=== PATIENT | male | born 1940 | race Caucasian/White ===

== ENCOUNTER 2016-11-05 10:28 | Emergency (ER) | payer MEDICARE, OTHER ==
[~2016-11-05 10:28] MED LIST: ASA5GR PO; ASAEC PO; CATAFLAM50 MG PO; CIP5 PO; D 5000 PO; FISH-EPA1000 MG PO; FUROSEMIDE PO; GLUCCHONDR PO; GLUCOV5 PO; L20 PO; LIPITOR20 PO; LOP25 PO; LOP50 PO; LORTAB 5 PO; LOTE10 PO; LOTREL1 CA1 PO; METAGLIP1 TA2 PO; METHOC500B PO; NORCO1 TAB PO; NORV5 PO; OMEPRAZOLE PO; PRILO PO; PRILOSEC40 MG PO; VICTOZA; VICTOZA PO; VITAMIN D31000 UNIT PO; X5 PO; ZOCOR40 PO
[2016-11-05 12:37] LABS: BASOPHILS 0.5 %; BASOPHILS ABSOLUTE 0.04 10/3/uL (0.0-0.16); EOSINOPHILS 3.5 %; EOSINOPHILS ABSOLUTE 0.27 10/3/uL (0.0-0.53); IMMATURE GRANULOCYTES 0.1 %; IMMATURE GRANULOCYTES ABSOLUTE 0.01 10/3/uL (0.0-0.11); LYMPHOCYTES 23.4 %; LYMPHOCYTES ABSOLUTE 1.78 10/3/uL (0.67-4.30); MEAN CORPUS HGB CONC 32.8 g/dL (32.0-36.0); MEAN CORPUSCULAR HEMOGLOB 28.6 pg (26.0-34.0); MEAN PLATELET VOLUME 10.9 fL (9.2-13.0); MONOCYTES 9.3 %; MONOCYTES ABSOLUTE 0.71 10/3/uL (0.21-1.20); NEUTROPHILS 63.2 %; NEUTROPHILS ABSOLUTE 4.81 10/3/uL (2.02-8.40); PLATELET COUNT 193 10/3/uL (150-400); RBC DISTRIBUTION WIDTH 14.5 % (12.0-16.0); WHITE BLOOD CELLS 7.6 10/3/uL (4.5-10.5)
[2016-11-05 12:38] LABS: ER CBC TAT 0 Hrs 08 Mins; HEMATOCRIT 37.5 % (40.0-51.0); HEMOGLOBIN 12.3 g/dL (13.6-17.8); MANUAL DIFF NO %; MEAN CORPUSCULAR VOLUME 87.2 fL (80-100)
[2016-11-05 12:44] LABS: PARTIAL THROMBO TIME 27.9 SEC (22.5-37.2); PROTIME (NOT ORD) 13.2 SEC (12.0-14.5)
[2016-11-05 12:55] LABS: ACETAMINOPHEN LEVEL (TYLENOL) < 2.0 MCG/ML (10.0-20.0); ALCOHOL < 10 MG/DL (0); BUN (BLOOD UREA NITROGEN) 29 MG/DL (6-23); CALCIUM, SERUM 9.4 MG/DL (8.5-10.4); CHEST PAIN PROFILE TAT 0 Hrs 26 Mins; CHLORIDE, SERUM 105 MMOL/L (96-112); CO2 (CARBON DIOXIDE) 29 MMOL/L (24-34); CREATININE 1.27 MG/DL (0.70-1.30); GFR AFRICAN AMERICAN 64 ML/MIN (>=60); GFR NON AFRICAN AMERICAN 55 ML/MIN (>=60); GLUCOSE, SERUM 140 MG/DL (60-99); POTASSIUM, SERUM 3.6 MMOL/L (3.5-5.3); SALICYLATE 1.8 MG/DL (-); SODIUM, SERUM 143 MMOL/L (135-148); TROPONIN I <0.02 NG/ML (<0.05)
[2016-11-05 13:45] LABS: WBC (NOT ORDERED) (RFLEX) 0 (0-5)
[2016-11-05 13:53] LABS: ASCORBIC ACID (UR NOT ORDER) NEG (NEG); BILIRUBIN, URINE NEGATIVE (NEG); ER URINALYSIS TAT 0 Hrs 09 Mins; KETONE, URINE NEGATIVE (NEG); LEUKOCYTE ESTERASE(NOT OR NEG (NEG); NITRITE (URINE) NEG (NEG)
[2016-11-05 14:10] LABS: AMPHETAMINES (NOT ORD) NEG (NEG); BARBITURATES (NOT ORDERED NEG (NEG); BENZODIAZEPINES (NOT ORD) NEG (NEG); CANNABINOIDS (THC) NEG (NEG); COCAINE (NOT ORDERED) NEG (NEG); OPIATES NEG (NEG); PHENCYCLIDINE(PCP) NEG (NEG); TRICYCLICS NEG (NEG)
[2016-11-05 14:28] LABS: INFLUENZA A SCREEN NEGATIVE (NEGATIVE); INFLUENZA B SCREEN NEGATIVE (NEGATIVE)
== END 2016-11-05 16:10 | disposition home or self-care (01) ==
LOC: ER 10:28
PROVIDERS: Nurse Practitioner
DX: R44.1 Visual hallucinations (principal); D64.9 Anemia, unspecified; R79.89 Other specified abnormal findings of blood chemistry; I10 Essential (primary) hypertension; K21.9 Gastro-esophageal reflux disease without esophagitis; E11.9 Type 2 diabetes mellitus without complications; Z87.891 Personal history of nicotine dependence; Z98.61 Coronary angioplasty status; Z88.8 Allergy status to other drugs, medicaments and biological substances; Z79.82 Long term (current) use of aspirin; Z79.899 Other long term (current) drug therapy
CPT/HCPCS: 71010; 80048; 80305; 80307; 81001; 83735; 84484; 85025; 85610; 85730; 87804; 93005; 96372; 99285

== ENCOUNTER 2017-01-08 20:24 | Inpatient (IN) | payer MEDICARE, OTHER ==
--- NOTE | ~2017-01-08 | DS ---
Discharge Summary [facility] [address] [place]. [address] NAME: ALEX KEMP : 44 STATUS : DIS IN PAT#: [id number] AGE: 76 ADM/REG DATE : 01/09/17 MR#: [id number] REPORT SERV DATE: 01/12/17 DICTATED BY: DATE: REPORT STATUS : Draft TRANSCRIBED BY: MODL DATE: 01/11/17 ADMISSION DATE: 01/08/2017 DISCHARGE DATE: 01/11/2017 The patient was admitted to the [facility]. DISCHARGE DIAGNOSES: 1. Weakness with multiple recent falls-due to morbid obesity, deconditioning, and lumbar spine stenosis. 2. Multilevel lumbar spine stenosis. No evidence of cord compression. 3. Acute kidney injury on chronic kidney disease, stage II-suspect due to recent nonsteroidal anti-inflammatory use. 4. Proteinuria-likely diabetic nephropathy. ARB resumed at discharge. 5. Insulin-dependent diabetes mellitus type 2-controlled with hemoglobin A1c 6.9. 6. Hypertension-controlled. 7. History of coronary artery disease. 8. Morbid obesity. 9. History of benign paroxysmal positional vertigo. IMAGIN. CT lumbar spine, 01/09, for lower extremity weakness and falls, shows high-grade canal stenosis at L4-5, L3-4, L1-2 with neuroforaminal stenosis present on the left at L5-S1 and on the right at L4-5 and L5-S1. Exam stable from 2010. No CT evidence of compression injury. 2. Plain films of the left ankle show medial probable lateral edema, represent underlying ligamentous strain or sprain. Small accessary ossicle deep to the tibia with no evidence of bony fracture. Plain films of the knee shows small joint effusion. No acute fracture or dislocation. 3. Portable chest x-ray shows normal heart size. Lungs clear. PERTINENT LABS: Urinalysis was negative. Lactic acid level negative. Hepatic function panel pertinent for creatinine of 1.66 at admission, 1.2 at discharge. Albumin 3.0. Liver enzymes normal. Troponin negative. White blood cell count initially 11.4, 7.2 at discharge. Hemoglobin slightly low 12.4, platelets 183. INR 1.0. BNP 12. Hemoglobin A1c 6.9. Blood cultures x2 negative. BRIEF HISTORY: For full details please see the previously dictated history of present illness by Dr. Colt Bautista. The patient is a 76-year-old, white male, followed outpatient by Dr. Del Bowen. The patient is morbidly obese with chronic medical conditions as outlined above. He sustained three falls on the day of admission, and required the fire department to be summoned to help pick him up for the first 2 falls. On the third fall, he was amenable to evaluation in the emergency department. In the ER, was noted to have acute kidney injury and was admitted to the Hospitalist Service for further evaluation. Discharge Summary [place] [address] [facility] [place]. [address] NAME: ALEX KEMP : 42 STATUS : DIS IN PAT#: [id number] AGE: 76 ADM/REG DATE : 01/09/17 MR#: [id number] REPORT SERV DATE: 01/12/17 DICTATED BY: DATE: REPORT STATUS : Draft TRANSCRIBED BY: SHASHANK DATE: 01/11/17 HOSPITAL COURSE: The patient was admitted to [facility], and his home angiotensin receptor jordi and diuretic were initially held. He was gently hydrated with downtrend in his creatinine to normal value prior to discharge. Urinalysis was negative and no other cause for acute kidney injury could initially be determined. On further questioning, patient reported recently increased back pain for which he has been taking 600-800 mg of ibuprofen several times a day for the past few weeks. He was expressly instructed to discontinue any nonsteroidal anti-inflammatory use as the likely cause of his acute kidney injury is nonsteroidal anti-inflammatories. To further evaluate the back pain and leg weakness, he underwent a CT of the lumbar spine this admission showing multifocal spinal stenosis throughout the lumbar spine. This is known from prior, and patient did not have any neurologic deficits on examination. Imaging is stable since 2010 and he declined to see an orthopedic surgeon for evaluation while he was here stating he prefers to manage it conservatively. The patient's other chronic medical conditions including hypertension, diabetes, history of coronary artery disease, and morbid obesity were controlled with home medications. The patient was seen by Physical Therapy and recommended for rehab placement. He was referred to [facility] and he was both medically and financially approved for transfer to [facility] on 01/11. A bed was available, and he is being transported this evening for ongoing physical rehabilitation. DISCHARGE DISPOSITION: The patient is being discharged to [facility]. Activity will be as directed by the receiving facility. He should adhere to an 1800 calorie, ADA, cardiac diet at discharge, and needs to plan to follow up with PCP, Del Bowen, within 7-14 days from discharge from [facility]. DISCHARGE MEDICATIONS: 1. Xanax 0.5 mg p.o. twice a day. 2. Norvasc 5 mg p.o. twice a day. 3. Ecotrin 325 mg p.o. daily. 4. NovoLog sliding scale subcu before every meal and at bedtime. 5. Multivitamin. 6. Metoprolol 25 mg p.o. twice a day. 7. Topical nystatin to groin skin folds. 8. Protonix 40 mg p.o. q.a.c. breakfast. 9. Zocor 40 mg p.o. at bedtime. 10.Trazodone 50-100 mg p.o. at bedtime. 11.Tylenol 650 mg p.o. every 4 hours as needed for fever or pain. 12.Guaifenesin 600 mg p.o. daily as needed for congestion. 13.Hydrocodone/acetaminophen 5/325 mg 1-2 tabs every six hours as needed. 14.Loratadine 10 mg p.o. daily as needed. 15.MiraLax one packet p.o. daily as needed. 16.DuoNeb as needed. 17.Levemir 10 units subcu at bedtime. Thirty minutes was spent in completion of the discharge. Discharge Summary [address] [address] NAME: ALEX KEMP : 42 STATUS : DIS IN PAT#: [id number] AGE: 76 ADM/REG DATE : 01/09/17 MR#: [id number] REPORT SERV DATE: 01/12/17 DICTATED BY: DATE: REPORT STATUS : Draft TRANSCRIBED BY: SHASHANK DATE: 01/11/17 ADILSON/SHASHANK Sacha John M.D. / [id number] CC: Raleigh Albarransfield, D.O. [facility]
--- NOTE | ~2017-01-08 | HP ---
History And Physical [facility] [address] [place]. [address] NAME: ALEX ASCENCIO : 44 STATUS : ADM Amairani PAT#: [id number] AGE: 76 ADM/REG DATE : 01/08/17 MR#: [id number] REPORT SERV DATE: 01/09/17 DICTATED BY: COLT FISCHER DATE: 01/09/17 REPORT STATUS : Draft TRANSCRIBED BY: MODL DATE: 01/09/17 DATE OF ADMISSION: 01/08/2017 CHIEF COMPLAINT: Recurrent falls today at home. HISTORY OF PRESENT ILLNESS: This is a 76-year-old male who has a history of recurrent falls, essential hypertension, morbid obesity, generalized weakness, coronary artery disease with stents, and diabetes, who presents to the emergency room at [facility] with the above-mentioned complaint. History is obtained from the patient and reviewing data available on the [employer] system. According to Mr. Ascencio, he got up today in the morning and on his way to the bathroom, felt his legs buckled and he went down to the floor. He did not hit his head against anything and did not lose consciousness. However, he was unable to get up and called the fire department, who came and helped him up. Later in the morning, he had another episode where he fell down again where his legs buckled and gave way. He again called the fire department, who came and helped him up and at this time, they tried to convince him to go to the emergency room to be evaluated. Mr. Ascencio refused at that time. He fell one more time at home and the fire department came home and helped him up, and this time when they asked him, he said he would like to go to the emergency room, and they brought him here. According to reports, he has not had any focal weaknesses or neurological signs. He was otherwise okay. In the emergency room, initial workup revealed acute kidney injury along with contusions in his left ankle and knee. Hospitalist Service is asked to admit him for further evaluation and treatment. At the time of my evaluation, he denied any chest pain, palpitations, or orthopnea. He had he had no cough, hemoptysis, night sweats, or weight loss. He did have falls as mentioned above, but without any loss of consciousness. No history of recent fevers, chills, nausea, vomiting, diarrhea. He has not had any recent hematemesis, hematochezia, or hematuria. No other history of recent travel or exposures. PAST MEDICAL HISTORY: Significant for history of essential hypertension, coronary artery disease with stents, diabetes mellitus type 2, morbid obesity, and a history of sepsis with Enterococcus faecalis in his urine. SOCIAL HISTORY: He does not smoke, drink, or use recreational drugs. FAMILY HISTORY: Noncontributory. MEDICATIONS: At home were reviewed by me in the chart today and reordered by me. REVIEW OF SYSTEMS: History And Physical [address] [address] NAME: ALEX ASCENCIO : 44 STATUS : ADM Amairani PAT#: [id number] AGE: 76 ADM/REG DATE : 01/08/17 MR#: [id number] REPORT SERV DATE: 01/09/17 DICTATED BY: COLT FISCHER DATE: 01/09/17 REPORT STATUS : Draft TRANSCRIBED BY: SHASHANK DATE: 01/09/17 As in history of present illness. All other systems were reviewed in detail and are quite unremarkable. PHYSICAL EXAMINATION: GENERAL: This is a pleasant 76-year-old with morbid obesity, quite alert, awake, oriented to time, place, and person. EENT: His pupils are equal, reacting to light and accommodating. External ocular muscles are intact. Membranes are moist and pink. Sclerae are nonicteric. NECK: Supple with no jugular venous distention or lymphadenopathy. There was no thyromegaly. HEAD: Atraumatic, normocephalic. LUNGS: Auscultation of his lungs revealed diminished air entry bilaterally, but without any rales or expiratory wheezes. Trachea appeared to be in midline. HEART: Auscultation of his heart revealed normal rate and rhythm with no murmurs, rubs, or gallops appreciated. ABDOMEN: Protuberant, soft, nontender. Bowel sounds are present. EXTREMITIES: Showed no cyanosis, clubbing, or edema. NEUROLOGIC: Grossly intact with no focal sensory or motor deficits. Higher functions appeared intact. Gait was not examined at this time. VITAL SIGNS: Today showed a temperature of 98.2, pulse 72, respirations 19 a minute, blood pressure was 176/54, oxygen saturations were 94% breathing 2 L of oxygen via nasal cannula. LABORATORY DATA: Reviewed on the [employer] system showed a sodium of 140, potassium 4.2, chloride 103, CO2 of 29, BUN was 28 with a creatinine of 1.66 which is slightly up from his baseline of 1.1 to 1.2. His blood glucose was 102. His alkaline phosphatase today was 69. ALT and AST were within normal limits. Troponin was 0.02. BNP was 12. Lactate was 1.4 today. CBC showed a white blood cell count of 11,400, hemoglobin was 12.4, hematocrit 37.2, and platelet count was 183,000. Urinalysis was unremarkable today. Films of the chest x- ray were reviewed by me on the PACS today and interpreted by me. There is normal bony architecture with no lobar consolidations or pleural effusions seen. A 12-lead EKG done in emergency room was reviewed and interpreted by me. There is sinus rhythm at a rate of 67 with a first-degree heart block. IMPRESSION: 1. Generalized weakness. 2. Recurrent falls. 3. Acute kidney injury. 4. Morbid obesity. 5. Essential hypertension. 6. Coronary artery disease with stent placement. 7. Diabetes mellitus, type 2. 8. Left ankle strain and left knee contusion. PLAN: We will admit Mr. Ascencio to the Hospitalist Service with defensive monitoring for a 24- hour observation period. We will start him on IV fluids for volume resuscitation and blood sugar control with NovoLog given subcutaneously per sliding scale. We will cautiously treat pain if at all necessary with oral medications in very low doses. We will get Social Work History And Physical [address] [place]. [address] NAME: ALEX ASCENCIO : 44 STATUS : ADM Amairani PAT#: [id number] AGE: 76 ADM/REG DATE : 01/08/17 MR#: [id number] REPORT SERV DATE: 01/09/17 DICTATED BY: COLT FISCHER DATE: 01/09/17 REPORT STATUS : Draft TRANSCRIBED BY: MODBassam DATE: 01/09/17 to evaluate him in the morning for rehabilitation and/or strength training. We will continue all other medications and treatments at this time as well. He will be on unfractionated heparin for DVT prophylaxis while he is here. I have discussed the above plans with the patient. His questions were answered, and he is agreeable to the above recommendations. Hospitalist Service will be following him during his stay here. /SHASHANK Colt Fischer M.D. / [id number] CC: Raleigh Ram
[2017-01-08 20:32] LABS: ASCORBIC ACID (UR NOT ORDER) NEG (NEG); BILIRUBIN, URINE NEGATIVE (NEG); ER URINALYSIS TAT 0 Hrs 08 Mins; KETONE, URINE NEGATIVE (NEG); LEUKOCYTE ESTERASE(NOT OR NEG (NEG); NITRITE (URINE) NEG (NEG); WBC (NOT ORDERED) (RFLEX) < 1 (0-5)
[2017-01-08 21:11] LABS: BUN (BLOOD UREA NITROGEN) 28 MG/DL (6-23); CALCIUM, SERUM 10.1 MG/DL (8.5-10.4); CHEST PAIN PROFILE TAT 0 Hrs 23 Mins; CHLORIDE, SERUM 103 MMOL/L (96-112); CO2 (CARBON DIOXIDE) 29 MMOL/L (24-34); CREATININE 1.66 MG/DL (0.70-1.30); GFR AFRICAN AMERICAN 46 ML/MIN (>=60); GFR NON AFRICAN AMERICAN 40 ML/MIN (>=60); GLUCOSE, SERUM 107 MG/DL (60-99); LACTATE 1.4 MMOL/L (0.3-2.4); SGPT(ALT) 18 U/L (5-65); SODIUM, SERUM 140 MMOL/L (135-148); TOTAL BILIRUBIN 0.3 MG/DL (0-1.2); TOTAL PROTEIN 8.1 G/DL (6.0-8.5); TROPONIN I <0.02 NG/ML (<0.05)
[2017-01-08 21:12] LABS: ALKALINE PHOSPHATASE 69 U/L (45-117); DIRECT BILIRUBIN < 0.1 MG/DL (0.0-0.4); INDIRECT BILIRUBIN(NOT ORDER) 0.2 MG/DL (0.1-0.9); POTASSIUM, SERUM 4.2 MMOL/L (3.5-5.3); SGOT(AST) 14 U/L (5-40)
[2017-01-08 21:21] LABS: BASOPHILS 0.2 %; BASOPHILS ABSOLUTE 0.02 10/3/uL (0.0-0.16); EOSINOPHILS ABSOLUTE 0.11 10/3/uL (0.0-0.53); HEMATOCRIT 37.2 % (40.0-51.0); HEMOGLOBIN 12.4 g/dL (13.6-17.8); IMMATURE GRANULOCYTES 0.3 %; IMMATURE GRANULOCYTES ABSOLUTE 0.04 10/3/uL (0.0-0.11); LYMPHOCYTES 15.3 %; LYMPHOCYTES ABSOLUTE 1.75 10/3/uL (0.67-4.30); MEAN CORPUS HGB CONC 33.3 g/dL (32.0-36.0); MEAN CORPUSCULAR HEMOGLOB 28.1 pg (26.0-34.0); MEAN PLATELET VOLUME 11.3 fL (9.2-13.0); MONOCYTES 6.1 %; NEUTROPHILS 77.1 %; NEUTROPHILS ABSOLUTE 8.81 10/3/uL (2.02-8.40); PLATELET COUNT 183 10/3/uL (150-400); RBC DISTRIBUTION WIDTH 15.2 % (12.0-16.0); RED CELL COUNT 4.41 10/6/uL (4.7-6.1)
[2017-01-08 21:22] LABS: ER CBC TAT 0 Hrs 05 Mins; MANUAL DIFF NO %; MEAN CORPUSCULAR VOLUME 84.4 fL (80-100); WHITE BLOOD CELLS 11.4 10/3/uL (4.5-10.5)
[2017-01-08 21:30] LABS: PARTIAL THROMBO TIME 27.7 SEC (22.5-37.2); PROTIME (NOT ORD) 13.5 SEC (12.0-14.5)
[2017-01-08] MEDS ORDERED: TRAZ50 PO (23:29)
[2017-01-08] MEDS ORDERED: L20 PO (23:29)
[2017-01-08] MEDS ORDERED: ZOCOR40 PO (23:29)
[2017-01-08] MEDS ORDERED: ASAEC PO (23:30)
[2017-01-08] MEDS ORDERED: PRILO PO (23:30)
[2017-01-08] MEDS ORDERED: LOTE10 PO (23:30)
[2017-01-08] MEDS ORDERED: X5 PO (23:31)
[2017-01-08] MEDS ORDERED: LOP25 PO (23:32)
[2017-01-08] MEDS ORDERED: NORV5 PO (23:32)
[2017-01-08] MEDS ORDERED: MUCINEX600 MG PO (23:33)
[2017-01-08] MEDS ORDERED: CLARIT10 PO (23:33)
[2017-01-08] MEDS ORDERED: HUMALOGMIX (23:35)
[2017-01-08] MEDS ORDERED: PRENATABS RX PO (23:36)
[2017-01-08] MEDS ORDERED: BARRIER CREAM TOP (23:38)
[2017-01-09 02:24] LABS: BASOPHILS 0.3 %; BASOPHILS ABSOLUTE 0.03 10/3/uL (0.0-0.16); EOSINOPHILS 1.7 %; EOSINOPHILS ABSOLUTE 0.19 10/3/uL (0.0-0.53); HEMATOCRIT 37.8 % (40.0-51.0); HEMOGLOBIN 12.3 g/dL (13.6-17.8); IMMATURE GRANULOCYTES 0.4 %; IMMATURE GRANULOCYTES ABSOLUTE 0.04 10/3/uL (0.0-0.11); LYMPHOCYTES 18.1 %; MEAN CORPUS HGB CONC 32.5 g/dL (32.0-36.0); MEAN CORPUSCULAR HEMOGLOB 28.2 pg (26.0-34.0); MEAN CORPUSCULAR VOLUME 86.7 fL (80-100); MEAN PLATELET VOLUME 10.8 fL (9.2-13.0); MONOCYTES ABSOLUTE 0.78 10/3/uL (0.21-1.20); NEUTROPHILS 72.5 %; NEUTROPHILS ABSOLUTE 8.04 10/3/uL (2.02-8.40); PLATELET COUNT 179 10/3/uL (150-400); RED CELL COUNT 4.36 10/6/uL (4.7-6.1); WHITE BLOOD CELLS 11.1 10/3/uL (4.5-10.5)
[2017-01-09 02:25] LABS: MANUAL DIFF NO %
[2017-01-09 02:51] LABS: BUN (BLOOD UREA NITROGEN) 26 MG/DL (6-23); CHLORIDE, SERUM 105 MMOL/L (96-112); CO2 (CARBON DIOXIDE) 28 MMOL/L (24-34); CREATININE 1.51 MG/DL (0.70-1.30); GFR AFRICAN AMERICAN 52 ML/MIN (>=60); GFR NON AFRICAN AMERICAN 45 ML/MIN (>=60); GLUCOSE, SERUM 101 MG/DL (60-99); PHOSPHORUS, SERUM 3.1 MG/DL (2.5-4.5); POTASSIUM, SERUM 3.7 MMOL/L (3.5-5.3); SODIUM, SERUM 143 MMOL/L (135-148); ULTRASENSITIVE TSH 0.788 MCIU/ML (0.358-3.740)
[2017-01-10 06:00] LABS: BASOPHILS 0.3 %; BASOPHILS ABSOLUTE 0.02 10/3/uL (0.0-0.16); EOSINOPHILS 3.9 %; EOSINOPHILS ABSOLUTE 0.28 10/3/uL (0.0-0.53); HEMOGLOBIN 10.2 g/dL (13.6-17.8); IMMATURE GRANULOCYTES 0.6 %; IMMATURE GRANULOCYTES ABSOLUTE 0.04 10/3/uL (0.0-0.11); LYMPHOCYTES 26.9 %; LYMPHOCYTES ABSOLUTE 1.94 10/3/uL (0.67-4.30); MEAN CORPUS HGB CONC 32.3 g/dL (32.0-36.0); MEAN CORPUSCULAR HEMOGLOB 28.1 pg (26.0-34.0); MEAN CORPUSCULAR VOLUME 87.1 fL (80-100); MONOCYTES 8.2 %; MONOCYTES ABSOLUTE 0.59 10/3/uL (0.21-1.20); NEUTROPHILS 60.1 %; NEUTROPHILS ABSOLUTE 4.33 10/3/uL (2.02-8.40); PLATELET COUNT 154 10/3/uL (150-400); RBC DISTRIBUTION WIDTH 15.7 % (12.0-16.0); RED CELL COUNT 3.63 10/6/uL (4.7-6.1); WHITE BLOOD CELLS 7.2 10/3/uL (4.5-10.5)
[2017-01-10 06:04] LABS: ALBUMIN 2.3 G/DL (3.5-5.0); BUN (BLOOD UREA NITROGEN) 24 MG/DL (6-23); CALCIUM, SERUM 8.6 MG/DL (8.5-10.4); CHLORIDE, SERUM 109 MMOL/L (96-112); CO2 (CARBON DIOXIDE) 25 MMOL/L (24-34); CREATININE 1.41 MG/DL (0.70-1.30); GFR AFRICAN AMERICAN 56 ML/MIN (>=60); GFR NON AFRICAN AMERICAN 49 ML/MIN (>=60); GLUCOSE, SERUM 178 MG/DL (60-99); PHOSPHORUS, SERUM 2.9 MG/DL (2.5-4.5); POTASSIUM, SERUM 3.7 MMOL/L (3.5-5.3); SODIUM, SERUM 143 MMOL/L (135-148)
[2017-01-10 06:05] LABS: HEMATOCRIT 31.6 % (40.0-51.0); MANUAL DIFF NO %
[2017-01-11 06:35] LABS: ALBUMIN 2.4 G/DL (3.5-5.0); CALCIUM, SERUM 9.1 MG/DL (8.5-10.4); CHLORIDE, SERUM 107 MMOL/L (96-112); CO2 (CARBON DIOXIDE) 28 MMOL/L (24-34); GFR AFRICAN AMERICAN 62 ML/MIN (>=60); GFR NON AFRICAN AMERICAN 54 ML/MIN (>=60); GLUCOSE, SERUM 166 MG/DL (60-99); PHOSPHORUS, SERUM 2.3 MG/DL (2.5-4.5); POTASSIUM, SERUM 3.9 MMOL/L (3.5-5.3); SODIUM, SERUM 142 MMOL/L (135-148)
[2017-01-11 06:36] LABS: BUN (BLOOD UREA NITROGEN) 20 MG/DL (6-23)
== END 2017-01-11 16:28 | DRG 683 ==
LOC: ER 20:24 → 5NO 23:57
PROVIDERS: Emergency Medicine; Hospitalist
DX: N17.9 Acute kidney failure, unspecified (principal); Z68.41 Body mass index [BMI] 40.0-44.9, adult; L89.152 Pressure ulcer of sacral region, stage 2; E11.21 Type 2 diabetes mellitus with diabetic nephropathy; E66.01 Morbid (severe) obesity due to excess calories; I25.10 Atherosclerotic heart disease of native coronary artery without angina pectoris; Z95.1 Presence of aortocoronary bypass graft; R53.1 Weakness; I12.9 Hypertensive chronic kidney disease with stage 1 through stage 4 chronic kidney disease, or unspecified chronic kidney disease; N18.2 Chronic kidney disease, stage 2 (mild); Z79.4 Long term (current) use of insulin; M48.06 Spinal stenosis, lumbar region; Z91.81 History of falling; T38.0X5A Adverse effect of glucocorticoids and synthetic analogues, initial encounter
CPT/HCPCS: 71010; 72131; 73560-LT; 73610-LT; 80048; 80069; 80076; 81001; 82533; 82962; 83036; 83605; 83735; 83880; 84100; 84443; 84484; 85025; 85610; 85730; 87040; 93005; 97161-GP; 99285; A9270-GY; G8978-CL-GP; G8979-CJ-GP; J0360